=== PATIENT | female | born 1995 | race Caucasian/White ===

== ENCOUNTER 2025-01-18 10:26 | Emergency (ER) | payer OTHER, SELFPAY ==
[2025-01-18 10:33] VITALS: BP 131/85
--- NOTE | 2025-01-18 14:13 | ED.GENMED ---
History of Present Illness
General
Chief Complaint: Dental Problem
Source: patient and family
Time Seen by Provider: 01/18/25 14:02
History of Present Illness
History of Present Illness:
This patient is a 29-year-old female presents the emergency department with complaints of feeling tender and sore at tooth #4 on Monday. This got progressively worse and she went to an urgent care on Monday and was started on clindamycin. She
is taking this 3 times a day. She is compliant with this medicine. By Monday, yesterday, she noted mild swelling of the right mid face. She saw a dentist and had x-rays performed, she was told she had an infection and recommendation was to
continue with antibiotics and they will follow-up with her early next week. She got concerned this morning because she noted what felt like more swelling in the right mid face associated with ear pain. This actually appears improved now compared
to this morning. She denies associated fever, chills, sweats, visual changes, eye changes/bulging, drainage, trismus, change in voice, drooling, trouble swallowing, pain with swallowing, neck pain. She is tolerating p.o. and antibiotics. She took
Motrin in the waiting room and this has fully relieved her pain. She does feel slightly nauseous and has mild diarrhea since the illness began.
Past History
Past History
ED Past Medical History: Other (POTS, mast, Erler's Danlos syndrome, aortic root or agitation)
ED Past Surgical History: Tonsilectomy
Social History
Tobacco: Non-smoker
Alcohol: Occasional
Drug: None
Living: with family
Phy Exam
Physical Exam
Physical Exam:
GENERAL: Alert , in no apparent distress
EYE: pupils equal and reactive, EOMI, no nystagmus, no proptosis, no periorbital swelling or redness noted
NECK: Supple, no significant adenopathy, no submental swelling, moves about head without hesitation.
ENT: o/p clr, mmm, no trismus, no drool, voice clear, no submental swelling, no posterior pharyngeal swelling, uvula midline, no exudate. There is very mild percussion tenderness of tooth #4 with minimal gingival swelling. There is very mild
midface swelling on the right side without associated fluctuance, crepitus, streaking.
CARDIAC: Regular rate and rhythm .
LUNGS: Clear breath sounds bilaterally, no acute respiratory distress, no wheezes/rales/rhonchi
ABDOMEN: Soft, without focal tenderness, no r/g, no cvat
NEUROLOGICAL: Alert and oriented, no focal neuro deficits
SKIN: Warm and dry, skin intact.
MUSCULOSKELETAL: No edema, well perfused.
PSYCH: Normal and appropriate interaction.
Course
Orders/Labs/Results
Orders:
Orders
01/18/25 14:30
CT Facial Bones W/o Iv Contras Urgent
Comment:
Reason For Exam: dentl infx with facial swelling R (IV contrst kevin
01/18/25 14:32
IV Insert/Care/Rem.- Treatment PRN
01/18/25 14:51
Basic Metabolic Panel Urgent
Complete Blood Count/No Diff Urgent
Abnormal Lab Results
01/18/25
14:51
BUN 5 L mg/dl
(7-17)
Creatinine 0.5 L mg/dL
(0.6-1.0)
01/18/25 14:51
01/18/25 14:51
Vital Signs
Initial and Last Documented VS:
Initial Vital Signs
Temp Pulse Resp BP Pulse Ox
98.7 F 72 20 131/85 100
01/18/25 10:33 01/18/25 10:33 01/18/25 10:33 01/18/25 10:33 01/18/25 10:33
Last Documented Vital Signs
Temp Pulse Resp BP Pulse Ox
98.7 F 72 20 131/85 100
01/18/25 10:33 01/18/25 10:33 01/18/25 10:33 01/18/25 10:33 01/18/25 14:17
*Pulse Oximetry
SaO2: 100
Oxygen Mode of Delivery: Room air
Patient hypoxic: no
*Critical Care Note
Total Time (30-74mins, 75-104mins- exclusive of procedures): Not Applicable
Update Note
Update Note:
Patient presents to the Emergency Department with __dental pain and facial swelling
Number and Complexity of Problems Addressed at the Encounter
� Chronic conditions affecting care:
� Acute Exacerbation and/or Progression of Chronic Illness:
� Differential Diagnosis includes: But not limited to dental infection, abscess, cellulitis, Teddy's angina, etc. etc.
Amount and/or Complexity of Data to be Reviewed and Analyzed
� I performed an independent evaluation of and my interpretation is:
EKG:
CT:There is mild soft tissue stranding within the right maxillary/buccal soft tissues which are likely related to known odontogenic infection. There is no evidence of adjacent fluid collection or subperiosteal abscess.
There is a small periapical lucency associated with the right maxillary second premolar. There is adjacent mild mucosal thickening in the inferior left maxillary sinus which is likely mild odontogenic sinusitis.
Xrays:
Laboratory Studies:unremarkable
Other:
� Review of other/old records reveals:
� Clinical information was obtained by an independent historian: Mother who was at bedside and retrieved patient's prescription from the car
� Prescriptions/Medications Considered but not given:
� Further testing considered but not performed:
Risk of Complications and/or Morbidity or Mortality of Patient Management
� Social determinants of health affecting care:
� Discussion with other providers (PCP, Hospitalists, Consultants, etc):
� Escalation of care including admission/observation vs risk of discharge considered: 4:44 PM patient remains extremely well-appearing, no signs of impending airway compromise, suspicion for orbital/periorbital cellulitis, etc.
Patient given copy of CT report. I do recommend that she increase the clindamycin to this 300 mg 4 times a day and I will write a prescription for that. Discussed with her importance of follow-up and reasons to return to the ER. She does have a
dentist to see on Monday.
ED Attending Note
-
Portions of this chart may have been created with voice recognition software.� Occasional wrong word or��sound alike� substitutions may have occurred due to the inherent limitations of voice recognition software.
Discharge Plan
Departure
Patient Disposition: Home (Routine Discharge)
Date of Disposition: 01/18/25
Time of Disposition: 16:45
Patient with high blood pressure during this ER visit?: Yes
Condition: Good
Discharge Problem:
Dental infection
Instructions: Dental Pain (DC), BLOOD PRESSURE
Prescriptions:
New
clindamycin HCl [Cleocin HCl] 300 mg capsule
600 mg PO QID 7 Days Qty: 56 0RF
Referrals:
Cherie Montejo NP [Family Provider, Family Practice]
Activity Restrictions/Additional Instructions:
PLEASE SEE YOUR DOCTOR ON MONDAY FOR PROMPT REEVALUATION. IN THE MEANTIME, IF YOU DEVELOP INCREASING OR NEW SWELLING, TROUBLE SWALLOWING, DROOLING, TROUBLE OPENING YOUR MOUTH FULLY, EYE PAIN, DOUBLE VISION, FEVER, VOMITING, GET WORSE, DO NOT GET
BETTER, OR OTHER WORRISOME SIGNS, PLEASE RETURN TO THE ER IMMEDIATELY EXCLAMATION
Interventions
Interventions:
*Risk Screen - Suicide Last Done: 01/18/25 10:33
*General Assessment Last Done: 01/18/25 10:33
*Neglect/Abuse Screening Last Done: 01/18/25 10:33
*ED- Fall Risk Assessment Last Done: 01/18/25 10:33
*ED COVID-19 Vaccine History Last Done: 01/18/25 10:33
*Nursing Disposition Last Done: 01/18/25 17:00
Discharge Date and Time
Discharge Date/Time: 01/18/25 17:00
Print Language: GUAMANIAN
[2025-01-18 15:12] LABS: Hematocrit 41.7 % (37.0-47.0); Hemoglobin 14.0 g/dL (12.0-16.0); Mean Corp Hgb Conc. 33.6 g/dL (33.0-37.0); Mean Corpuscular Volume 84.6 fL (81.0-99.0); Platelet Count 324 10^3/uL (130-400); Red Cell Dist. Width 12.9 % (11.5-14.5)
[2025-01-18 15:37] LABS: Blood Urea Nitrogen 5 mg/dl (7-17); Calcium 9.7 mg/dl (8.4-10.2); Carbon Dioxide 27 mmol/L (22-30); Chloride 105 mmol/L (98-107); Glucose 95 mg/dl (70-99); Potassium 4.6 mmol/L (3.5-5.1); Sodium 138 mmol/L (135-145); eGFR > 60.00
== END 2025-01-18 17:00 | disposition home or self-care (01) ==
LOC: EMR 10:26
PROVIDERS: EMERGENCY PHYSICIAN Emergency Medicine; FAMILY PHYSICIAN Nurse Practitioner Family
DX: K04.7 Periapical abscess without sinus (principal); G90.A Postural orthostatic tachycardia syndrome [POTS]
CPT/HCPCS: 99284; 70486; 80048; 85027